=== PATIENT | female | born 1975 | race Caucasian/White ===

== ENCOUNTER 2016-09-21 20:20 | Emergency (ER) | payer OTHER ==
[2016-09-21 20:29] VITALS: TEMP 99.5; BMI 27.4
--- NOTE | 2016-09-21 20:32 | PDOC ---
History of Present Illness - General History Source: Patient Exam Limitations: No Limitations <Laurent Jamison - Last Filed: 09/21/16 21:08> <Kate Veronica - Last Filed: 09/22/16 01:43> - General Chief Complaint: Chest Pain Stated Complaint: CHEST PAIN Time Seen by Provider: 09/21/16 20:31 - History of Present Illness Initial Comments: 09/21/16 20:55 The patient is a 41 year old female with a significant past medical history of diverticulitis, who presents to the ED with a burning sensation in the mid- chest since this afternoon. Patient states she woke up this morning with burning under her left arm with the chest burning beginning soon after. Patient states this also occurred last Friday but dissipated by Friday. She denies any changes in diet. She denies any SOB, fever, cough, chills, nausea, vomiting. She denies dysuria, frequency, urgency. She denies any recent leg edema or tenderness. She denies recent travels, sick contacts. She denies smoking, drinking Family History: Thyroid Disease and HTN. (Laurent Jamison) Past History <Laurent Jamison - Last Filed: 09/21/16 21:08> - Past Medical History GI Disorders: Yes (DIVERTICULITIS) - Psycho/Social/Smoking Cessation Hx Anxiety: No Suicidal Ideation: No Smoking History: Never smoked Hx Alcohol Use: Yes (OCCASIONAL) Drug/Substance Use Hx: No Substance Use Type: None <Kate Veronica - Last Filed: 09/22/16 01:43> - Past Medical History Allergies/Adverse Reactions: Allergies Allergy/AdvReac Type Severity Reaction Status Date / Time No Known Allergies Allergy Verified 06/01/16 20:30 Home Medications: Ambulatory Orders Bifidobacterium Infantis [Align] 10.5 mg PO DAILY 09/21/16 Famotidine [Pepcid] 40 mg PO DAILY #20 tablet 09/21/16 Multivitamins [Tab-A-Vit -] 1 tab PO DAILY 09/21/16 Norgestimate-Ethinyl Estradiol [Tri-Estarylla] 1 each PO DAILY 09/21/16 Review of Systems - Review of Systems Able to Perform ROS?: Yes <Laurent Jamison - Last Filed: 09/21/16 21:08> <Kate Veronica - Last Filed: 09/22/16 01:43> - Review of Systems Comments:: 09/21/16 20:55 CONSTITUTIONAL: Absent: fever, no chills, no fatigue EYES: Absent: visual changes ENT: Absent: ear pain, no sore throat CARDIOVASCULAR: Present: mid- chest burning. Absent:no palpitations RESPIRATORY: Absent: cough, no SOB GI: Absent: abdominal pain, no nausea, no vomiting, no constipation, no diarrhea GENITOURINARY: Absent: dysuria, no frequency, no hematuria MUSKULOSKELETAL: Present: burning sensation under left arm. Absent: back pain, no arthralgia, no myalgia SKIN: Absent: rash NEURO: Absent: headache (Laurent Jamison) *Physical Exam <Laurent Jamison - Last Filed: 09/21/16 21:08> <Kate Veronica - Last Filed: 09/22/16 01:43> - Vital Signs Last Vital Signs Temp Pulse Resp BP Pulse Ox 99.5 F 83 16 133/86 100 09/21/16 20:27 09/21/16 22:30 09/21/16 20:27 09/21/16 22:30 09/21/16 20:27 - Physical Exam Comments: 09/21/16 20:56 GENERAL: The patient is awake, alert, and fully oriented, in no acute distress. HEAD: Normal with no signs of trauma. EYES: Pupils equal, round and reactive to light, extraocular movements intact, sclera anicteric, conjunctiva clear with no pallor. ENT: Ears normal, nares patent, oropharynx clear without exudates. Moist mucous membranes. NECK: Normal range of motion, supple without lymphadenopathy, JVD, or masses. LUNGS: Breath sounds equal, clear to auscultation bilaterally. No wheeze/ crackles. HEART: Tachycardia. Normal S1 and S2 without murmur or rub. ABDOMEN: Soft/nontender/nondistended. BS wnl. No guarding or rebound. No palpable masses. No hepatosplenomegaly. EXTREMITIES: Normal range of motion, no edema. No clubbing or cyanosis. No cords , erythema, or tenderness. NEUROLOGICAL: Cranial nerves II through XII grossly intact. Normal speech, normal gait. PSYCH: Normal mood, normal affect. SKIN: Warm, Dry, normal turgor, no rashes or lesions noted. (Laurent Jamison) ED Treatment Course - LABORATORY CBC & Chemistry Diagram: 09/21/16 21:05 09/21/16 21:05 <Kaet Veronica - Last Filed: 09/22/16 01:43> - ADDITIONAL ORDERS Additional order review: Laboratory Results 09/21/16 09/21/16 09/21/16 21:05 21:05 21:05 D-Dimer < 200 Sodium 137 Potassium 3.9 Chloride 107 Carbon Dioxide 23 Anion Gap 7 L BUN 10 Creatinine 0.7 Creat Clearance w eGFR > 60 Random Glucose 104 Calcium 9.4 Total Bilirubin < 0.3 AST 28 ALT 16 Alkaline Phosphatase 56 Creatine Kinase 59 Troponin I 0.07 Total Protein 6.7 Albumin 3.4 L TSH 1.68 09/21/16 21:05 RBC 4.26 MCV 89.6 MCHC 34.2 RDW 12.9 MPV 7.4 L Neutrophils % 62.1 Lymphocytes % 28.9 Monocytes % 5.6 Eosinophils % 1.9 Basophils % 1.5 - Medications Given in the ED: ED Medications Discontinued Medications Generic Name Dose Route Start Last Admin Trade Name Freq PRN Reason Stop Dose Admin Famotidine/Sodium Chloride 50 mls @ 100 mls/hr 09/21/16 21:02 09/21/16 21:14 Pepcid 20 Mg Premixed Ivpb - IVPB 09/21/16 21:31 100 mls/hr ONCE ONE Administration Progress Note <Laurent Jamison - Last Filed: 09/21/16 21:08> <Kate Veronica - Last Filed: 09/22/16 01:43> - Progress Note Progress Note: Documentation has been prepared under my direction and personally reviewed by me in its entirety. I attest that this documented accurately reflects all work, treatment, procedures and medical decision making performed by me. (Kate Veronica) Medical Decision Making <Laurent Jamison - Last Filed: 09/21/16 21:08> <Kate Veronica - Last Filed: 09/22/16 01:43> - Medical Decision Making As noted above, this 41-year-old woman presents with recurrent midsternal chest pain. Patient had this pain which has burning quality for a few days approximately week ago. Pain is now recurred. She has no associated symptoms except for some left arm discomfort. No previous history of dyspepsia/peptic ulcer disease/GERD/gallbladder disease. Patient has a significant history of diverticulitis. No recent change in diet; no fever/chills/cough. Although the patient has no personal history of thyroid disease, she has an extensive family history (both on maternal and paternal) of thyroid issues Coronary artery disease risk factors: Family history Exam as noted above; although patient appears to have no shortness of breath and has 100% saturation on room air, she is mildly tachycardic in the 179415/ minute range. Lungs are clear and patient has no chest wall tenderness. Abdomen reveals no tenderness or masses. Lower extremities are nontender/ nonedematous Twelve-lead electrocardiogram reveals normal sinus rhythm at 96 bpm; axis, intervals and wave forms are all normal without evidence of acute ST or T-wave abnormalities. Patient given Pepcid 20 mg IV Laboratory evaluation is essentially normal, including TSH and cardiac enzymes Patient reports some relief in her pain after IV Pepcid. Clinical presentation most consistent with atypical chest pain of probable gastrointestinal etiology. Prescription for Pepcid 40 mg daily will be issued to patient's pharmacy. Suggestions for avoidance of foods that trigger reflux were discussed with the patient and will be part of her discharge instructions. Since patient has a history of diverticular disease, she has has a roofing apprentice. She should follow-up with her within the next week. She should return to the emergency room if she has persistent severe pain or develops associated shortness of breath/nausea (Kate Veronica) *DC/Admit/Observation/Transfer <Laurent Jamison - Last Filed: 09/21/16 21:08> <Kate Veronica - Last Filed: 09/22/16 01:43> Diagnosis at time of Disposition: GERD (gastroesophageal reflux disease) Qualifiers: Esophagitis presence: with esophagitis Qualified Code(s): K21.0 - Gastro- esophageal reflux disease with esophagitis - Discharge Dispostion Disposition: HOME Condition at time of disposition: Stable - Prescriptions Prescriptions: Famotidine [Pepcid] 40 mg PO DAILY #20 tablet - Referrals Referrals: Richard Aden MD [Primary Care Provider] - - Patient Instructions Printed Discharge Instructions: GERD Diet, DI for Atypical Chest Pain Additional Instructions: Keep head elevated at night Pepcid 40 mg daily Consider dietary changes as discussed Return to ER if you have severe pain/nausea/shortness of breath Follow-up with your roofing apprentice within the next week - Attestations Scribe Attestion: 09/21/16 20:57 Documentation prepared by Laurent Jamison, acting as curator medical museum for Kate Veronica MD. (Laurent Jamison)
[2016-09-21] MEDS ORDERED: FAMOTIDINE 20 MG/50 ML IVPB 50 ML IVPB ONE ×2 (21:02→21:05)
[2016-09-21 21:39] LABS: BASOPHIL 1.5 % (0-2.0); EOSINOPHIL 1.9 % (0-4.5); MCH 30.6 pg (25.7-33.7); MCHC 34.2 g/dl (32.0-36.0); MEAN CELL VOLUME 89.6 fl (80-96); MEAN PLT VOLUME 7.4 fl (7.5-11.1); NEUTROPHILS 62.1 % (42.8-82.8); PLATELET COUNT 398 K/MM3 (134-434); RDW 12.9 % (11.6-15.6); WHITE BLOOD COUNT 9.7 K/mm3 (4.0-10.0)
[2016-09-21 21:52] LABS: ALBUMIN 3.4 g/dl (3.5-5.0); ALK PHOS 56 U/L (32-92); ANION GAP 7 (8-16); CALCIUM 9.4 mg/dl (8.4-10.2); CO2 23 mmol/L (22-28); CREATININE 0.7 mg/dl (0.6-1.3); GLUCOSE,RANDOM 104 mg/dl (74-106); SGOT/AST 28 U/L (10-42); SGPT/ALT 16 U/L (10-40); TOT PROT 6.7 g/dl (6.4-8.3)
[2016-09-21 22:15] LABS: BILIRUBIN,TOTAL < 0.3 mg/dl (0.2-1.0)
[2016-09-21 22:17] LABS: TROPONIN I (DFP) 0.07 ng/ml (0.03-0.50)
[2016-09-21 22:40] LABS: THYROID STIMULATING HORMONE 1.68 uIU/ml (0.358-3.74)
[2016-09-21 23:46] VITALS: BP 133/86; PULSE 83
--- NOTE | 2016-09-23 09:08 | EKG ---
Test Reason : Blood Pressure : / mmHG Vent. Rate : 096 BPM Atrial Rate : 096 BPM P-R Int : 130 ms QRS Dur : 080 ms QT Int : 372 ms P-R-T Axes : 075 060 047 degrees QTc Int : 469 ms SINUS RHYTHM POSSIBLE LEFT ATRIAL ENLARGEMENT BORDERLINE ECG NO PREVIOUS ECGS AVAILABLE Confirmed by DANY GALLEGO MD ([id number]) on 09/23/2016 9:08:05 AM Referred By: CHARLINE Confirmed By:DANY GALLEGO MD
== END 2016-09-21 23:49 | disposition home or self-care (01) ==
LOC: FER 20:20
PROC: 3E033GC Introduction of Other Therapeutic Substance into Peripheral Vein, Percutaneous Approach (ICD-10-PCS; principal; 2016-09-21)
DX: K21.0 Gastro-esophageal reflux disease with esophagitis (principal); K57.92 Diverticulitis of intestine, part unspecified, without perforation or abscess without bleeding
CPT/HCPCS: 36415; 80053; 82550; 84443; 84484; 85025; 85379; 93005; 99282-25

== ENCOUNTER 2018-08-09 01:01 | Emergency (ER) | payer OTHER ==
--- NOTE | 2018-08-09 01:08 | PDOC ---
History of Present Illness - General Chief Complaint: Pain, Acute Stated Complaint: ABD PAIN X2 WEEKS Time Seen by Provider: 08/09/18 01:07 - History of Present Illness Initial Comments: This 43 y.o woman with a history of diverticulitis was seen in urgent care approximately 1 week ago with few day history of left mid-abdominal pain. patient states that the pain was very similar to previous episodes of diverticulitis. She was started on Metronidazole and has taken the medication as prescribed for six days. Although there has been a little improvement, the patient states she still has considerable pain in the area. She denies fever/ chills/vomiting. Past History - Past Medical History Allergies/Adverse Reactions: Allergies Allergy/AdvReac Type Severity Reaction Status Date / Time No Known Allergies Allergy Verified 06/15/18 20:26 Home Medications: Ambulatory Orders Bifidobacterium Infantis [Align] 10.5 mg PO DAILY 09/21/16 Multivitamins [Tab-A-Vit -] 1 tab PO DAILY 09/21/16 Norgestimate-Ethinyl Estradiol [Tri-Estarylla] 1 each PO DAILY 09/21/16 levoFLOXacin [Levaquin] 750 mg PO DAILY #6 tab 08/09/18 metroNIDAZOLE [Flagyl -] 500 mg PO TID #18 tablet 08/09/18 COPD: No GI Disorders: Yes (DIVERTICULITIS) - Suicide/Smoking/Psychosocial Hx Smoking History: Never smoked Hx Alcohol Use: Yes (OCCASIONAL) Drug/Substance Use Hx: No Substance Use Type: None Review of Systems - Review of Systems Able to Perform ROS?: Yes Comments:: 12 point review of systems is negative except for what is noted in the history of present illness *Physical Exam - Physical Exam Comments: GENERAL: HEAD: Normal with no signs of trauma. EYES: PERRLA, EOMI, sclera anicteric, conjunctiva clear. ENT: Ears normal, nares patent, oropharynx clear without exudates. Dry mucous membranes. NECK: Normal range of motion, supple without lymphadenopathy, JVD, or masses. LUNGS: Breath sounds equal, clear to auscultation bilaterally. No wheezes, and no crackles. HEART:Regular rate and rhythm, normal S1 and S2 without murmur, rub or gallop. ABDOMEN:.normal bowel sounds; mild left mid abdominal tenderness without rebound tenderness or guarding ;No masses No distention. EXTREMITIES: Normal range of motion, no edema. No clubbing or cyanosis. No erythema, or tenderness. NEUROLOGICAL: Cranial nerves II through XII grossly intact. Normal speech. No focal neurological deficits. MUSCULOSKELETAL: Back non-tender to palpation, no CVA tenderness SKIN: Warm, Dry, normal turgor, no rashes or lesions noted. Medical Decision Making - Medical Decision Making As noted above, this 43-year-old woman with a history of diverticulitis presents with a few week history of left mid abdominal pain, feeling very much like her previous episodes of acute diverticulitis. She had been seen in urgent care 1 week ago and started on metronidazole. Although there is been some improvement in pain there is still a significant amount of pain and tenderness in the area. She has had no vomiting or fever. Exam as noted. Patient has no evidence of systemic infectious process. Abdominal exam reveals mild left mid abdominal tenderness without evidence of peritoneal irritation. Since patient has been on monotherapy (Flagyl only) for 6 days, will add Levaquin 750 mg for the next week. Meanwhile, she should make an appointment with her PMD for follow-up exam and further advice. If she develops high fever/ vomiting/worsening pain, she should return to the emergency room. *DC/Admit/Observation/Transfer Diagnosis at time of Disposition: Diverticulitis - Discharge Dispostion Disposition: HOME Condition at time of disposition: Stable - Prescriptions Prescriptions: levoFLOXacin [Levaquin] 750 mg PO DAILY #6 tab metroNIDAZOLE [Flagyl -] 500 mg PO TID #18 tablet - Referrals - Patient Instructions Printed Discharge Instructions: DI for Diverticulitis Additional Instructions: Continue current diet with plenty of fluids Levaquin 750 mg daily for the next 6 days Continue Flagyl 500 mg 3 times a day for the next 6 days Return to ER if you have severe pain/high fever/vomiting Follow-up with your tsa screener within the next 5 days (call office on Friday, 08/10 to arrange follow-up ) - Post Discharge Activity
[2018-08-09 01:11] VITALS: BP 136/79; PULSE 95; TEMP 97.8; BMI 29.2
== END 2018-08-09 02:04 | disposition home or self-care (01) ==
LOC: FER 01:01
DX: K57.92 Diverticulitis of intestine, part unspecified, without perforation or abscess without bleeding (principal)
CPT/HCPCS: 99282-25